=== PATIENT | female | born 1955 | race Caucasian/White ===

== ENCOUNTER 2017-04-01 11:25 | Emergency (ER) | payer OTHER ==
--- NOTE | 2017-04-01 12:08 | ER PHYSICIAN DOCUMENTATION ---
Physician Documentation [facility] Name:Carmen Wright Age:61 yrs Sex:Female :1955 Arrival Date:04/01/2017 Time:11:25 Bed4 Private MD:No PCP, Identified ED [place] pimentel Disposition: 04/01/17 11:58 Discharged to Home/Self Care. Impression: Knee Contusion, Head Contusion, Unspecified Part of Head. - Condition is Good. - Discharge Instructions: CONTUSION, Lower Extremity, HEMATOMA. - Medical Reconciliation form form. - Follow up: Private Physician; When: As needed; Reason: Continuance of care. - Problem is new. - Symptoms have improved. HPI: 04/01 12:08 This 61 yrs old Female presents to ER via Private Vehicle with complaints of jm Fall Injury - L KNEE. 12:08 Details of fall: The patient fell from an upright position, while walking. Onset: The jm symptom(s)/episode began/occurred just prior to arrival. Associated injuries: The patient sustained injury to the head, left knee. Associated signs and symptoms: Pertinent negatives: headache, nausea, weakness, Loss of consciousness: the patient experienced no loss of consciousness. Severity of symptoms: in the emergency department the symptoms are unchanged. The patient has not experienced similar symptoms in the past. PT able to walk, but her L knee is very swollen and bruised. . Historical: - Allergies: Demerol; codeine sulfate; - Home Meds: 1. Aspirin Oral 2. Inderal XL oral 3. oxybutynin chloride Oral 4. med for achnie - Tetanus: < 10 years will f/u with PCP. - Ebola Screening: : Patient denies exposure to infectious person. Patient denies travel to an Ebola-affected area in the 21 days before illness onset. . - Social history: Smoking status: Patient states was never smoker of tobacco. Patient uses alcohol occasionally. Patient/guardian denies using marijuana. ROS: 12:08 Constitutional: Negative for fever, malaise. jm 12:08 Eyes: Negative for blurry vision. 12:08 ENT: Negative for injury or acute deformity. 12:08 Abdomen/GI: Negative for nausea, vomiting. 12:08 MS/extremity: Positive for injury or acute deformity, decreased range of motion, ecchymosis, pain, swelling, tenderness. 12:08 Neuro: Negative for dizziness, headache, loss of consciousness, numbness. Exam: 12:08 Constitutional: The patient appears alert, awake. 12:08 Head/face: Noted is hematoma, that is mild, of the right side of forehead, Basilar skull fracture findings: the patient does not have obvious signs of a basilar skull fracture. 12:08 Eyes: Pupils: equal, round, and reactive to light and accomodation, Extraocular movements: intact throughout. 12:08 Neck: C-spine: appears grossly normal, ROM/movement: is normal. 12:08 Musculoskeletal/extremity: Extremities: grossly normal except: noted in the left knee: decreased ROM, ecchymosis, pain, swelling, tenderness, Pulses: are normal with no appreciated deficits, Weight bearing: able to fully bear weight. 12:08 Neuro: Mentation: is normal, Memory: is normal, Cranial nerves: CN II- XII are normal as tested, Cerebellar function: normal finger to nose testing, Motor: strength is normal. Vital Signs: 11:39 BP 131 / 70; Pulse 61; Resp 18; Temp 98.7; Pulse Ox 95% on R/A; Pain 2/10; lpr MDM: 11:28 Patient medically screened. 12:10 Differential diagnosis: closed head injury, contusion, fracture. Data reviewed: vital jm signs, nurses notes, radiologic studies, and as a result, I will discharge patient. Test interpretation: by ED physician or midlevel provider: plain radiologic studies. Counseling: I had a detailed discussion with the patient and/or guardian regarding: the historical points, exam findings, and any diagnostic results supporting the discharge/admit diagnosis, radiology results, the need for outpatient follow up, with the patient's primary care provider. ED course: No indication for CToH. Xrays of the knee are negative. DC home. . 04/01 14:06 Order name: KNEE; [address] [place] [id number] EDOH 04/01 11:58 Order name: Ice Packs 04/01 11:58 Order name: ORTHO: 6" Alejandro Wrap Dispensed Medications: No medications were administered Signatures: Rosario Neumann RN RN sc1 Tex Alex MD MD Carey Zuleta RN RN lpr
--- NOTE | 2017-04-01 12:08 | ER NURSING DOCUMENTATION ---
Nurse's Notes [facility] Name:Carmen Wright Age:61 yrs Sex:Female :1955 Arrival Date:04/01/2017 Time:11:25 Bed4 Private MD:No PCP, Identified Diagnosis:Knee Contusion;Head Contusion, Unspecified Part of Head Presentation: 04/01 11:35 Presenting complaint: Patient states: pt tripped and fell this AM. pt has a goose egg lpr over the left eye and bruising around the left knee. Transition of care: patient was not received from another setting of care. 11:35 Acuity: GER 3 lpr 11:35 Method Of Arrival: Private Vehicle lpr Triage Assessment: 11:38 General: Appears in no apparent distress, Behavior is cooperative. Pain: Complains of lpr pain in forehead and left knee Pain currently is 2 out of 10 on a pain scale. Pain began 1 hour ago. 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 Cardiovascular: No deficits noted. Respiratory: No deficits noted. Musculoskeletal: Circulation, motion, and sensation intact Swelling present in forehead and left knee. Injury Description: Bruise sustained to forehead and left knee. Historical: - Allergies: Demerol; codeine sulfate; - Home Meds: 1. Aspirin Oral 2. Inderal XL oral 3. oxybutynin chloride Oral 4. med for achnie - Tetanus: < 10 years will f/u with PCP. - Ebola Screening: : Patient denies exposure to infectious person. Patient denies travel to an Ebola-affected area in the 21 days before illness onset. . - Social history: Smoking status: Patient states was never smoker of tobacco. Patient uses alcohol occasionally. Patient/guardian denies using marijuana. Screenin:40 Infectious Disease Risk None. Abuse screen: Denies threats or abuse. Denies injuries lpr from another. pt feels safe at home. Nutritional screening: No deficits noted. Assessment: 12:02 General: All RN charting done by Noreen holloway Vital Signs: 11:39 BP 131 / 70; Pulse 61; Resp 18; Temp 98.7; Pulse Ox 95% on R/A; Pain 2/10; lpr ED Course: 11:27 Patient arrived in ED. ds 11:28 No PCP, Identified is Private Physician. ds 11:28 Tex Alex MD is Attending Physician. rick 11:36 Triage completed. lpr 11:40 Valuables Remains with patient Patient has correct armband on for positive lpr identification. Ice pack to injury. 11:50 Port Xray Completed. hz 11:54 Rosario Neumann, RN is Primary Nurse. sc1 Administered Medications: No medications were administered Outcome: 11:58 Discharge ordered by . rick 12:08 Patient left the ED. sc1 04/02 16:05 Discharge F/U Call: Spoke with: patient. Overall Care on a scale of 1-10 with 10 tg being the best care, you rate our care as: Other comments: Appreciative of care in ED- Feeling worse, (more pain), but it is manageable. Does not want anything Rx'd for pain- will follow up if needed in a few days if not better. Signatures: Konstantin Daniels RN RN tg Noreen Palomo, RN Rosario Ellis RN RN [facility] [place] Srot, Lakisha, Reg Reg Tex Grant MD MD jm Roberts, Leslie, RN RN lpr Zolnowski, Heather
--- NOTE | 2017-04-01 13:53 | RADIOLOGY REPORT ---
Four views of the left knee demonstrate no displaced fracture or dislocation. The joints appear unremarkable. IMPRESSION: No displaced injury is identified. If clinically indicated, further evaluation and/or follow-up may be of benefit. ALEKSANDR
== END 2017-04-01 12:08 | disposition home or self-care (01) ==
LOC: ER 11:25
DX: S00.83XA Contusion of other part of head, initial encounter (principal); S80.02XA Contusion of left knee, initial encounter; W01.190A Fall on same level from slipping, tripping and stumbling with subsequent striking against furniture, initial encounter; Y92.59 Other trade areas as the place of occurrence of the external cause; Y93.01 Activity, walking, marching and hiking; Y99.0 Civilian activity done for income or pay
CPT/HCPCS: 99282